=== PATIENT | female | born 1960 | race Caucasian/White ===

== ENCOUNTER 2018-06-06 15:31 | Outpatient (REF) | payer MEDICARE, MEDICAID, SELFPAY ==
[2018-06-06 21:46] LABS: HCT 37.2 % (36.0-46.0); HGB 11.5 g/dL (12.0-15.5); Mean Corp. HGB Concentration 30.9 g/dL (32.0-36.0); Mean Corpuscular Hemoglobin 27.7 pg (27.0-33.0); Mean Corpuscular Volume 89.6 fL (80-95); Mean Platelet Volume 11.8 fL (8.0-11.0); Platelet Count 233 x1000/uL (130-400); RBC 4.15 m/cumm (4.00-5.20); RBC Distribution Width 16.1 % (11.7-14.6)
[2018-06-06 22:07] LABS: ALT 22 U/L (12-78); AST 23 U/L (15-37); Albumin 4.2 g/dL (3.4-5.0); Alkaline Phosphatase 120 U/L (46-116); Anion Gap 8.7 mmol/L (3-11); BUN 28 mg/dL (7-18); Bilirubin, Total 0.3 mg/dL (0.2-1.0); CO2 26.3 mmol/L (21.0-32.0); CREATININE 1.53 mg/dL (0.55-1.02); Calcium 8.9 mg/dL (8.5-10.1); Chloride 107 mmol/L (98-107); Cholesterol 144 mg/dL (50-200); Estimated GFR 35.11 (mL/min/1.73m2); Glucose 96 mg/dL (70-100); HDL Cholesterol 41 mg/dL (40-60); LDL CHOLESTEROL 72 mg/dL (<100); Potassium 4.3 mmol/L (3.5-5.1); Sodium 142 mmol/L (136-145); Triglyceride 265 mg/dL (30-150)
== END 2018-06-06 15:32 ==
LOC: NCHCN 15:31
PROVIDERS: PCP Nurse Practitioner Family; Visit Provider Family Medicine
DX: E11.9 Type 2 diabetes mellitus without complications (principal); R41.3 Other amnesia
CPT/HCPCS: 80053; 80061; 83721; 85027

== ENCOUNTER 2018-09-18 20:51 | Outpatient (REF) | payer MEDICARE, MEDICAID, SELFPAY ==
[2018-09-18 21:34] LABS: Anion Gap 11.5 mmol/L (3-11); BUN 28 mg/dL (7-18); CO2 24.5 mmol/L (21.0-32.0); CREATININE 1.49 mg/dL (0.55-1.02); Chloride 107 mmol/L (98-107); Glucose 156 mg/dL (70-100); Potassium 4.1 mmol/L (3.5-5.1); Sodium 143 mmol/L (136-145)
== END 2018-09-18 21:11 ==
LOC: NCHCN 20:51
PROVIDERS: PCP Nurse Practitioner Family; Visit Provider Family Medicine
DX: E11.9 Type 2 diabetes mellitus without complications (principal)
CPT/HCPCS: 80048

== ENCOUNTER 2018-10-18 14:06 | Outpatient (REF) | payer MEDICARE, MEDICAID, SELFPAY ==
[2018-10-18 21:12] LABS: Anion Gap 11.8 mmol/L (3-11); BUN 28 mg/dL (7-18); CO2 22.2 mmol/L (21.0-32.0); CREATININE 1.53 mg/dL (0.55-1.02); Chloride 108 mmol/L (98-107); Estimated GFR 35.11 (mL/min/1.73m2); Glucose 134 mg/dL (70-100); Potassium 5.2 mmol/L (3.5-5.1); Sodium 142 mmol/L (136-145)
== END 2018-10-18 14:26 ==
LOC: NCHCN 14:06
PROVIDERS: PCP Nurse Practitioner Family; Visit Provider Family Medicine
DX: N18.3 Chronic kidney disease, stage 3 (moderate) (principal)
CPT/HCPCS: 80048

== ENCOUNTER 2019-04-17 15:56 | Outpatient (REF) | payer MEDICARE, MEDICAID, SELFPAY ==
[2019-04-17 22:01] LABS: HCT 36.8 % (36.0-46.0); HGB 11.3 g/dL (12.0-15.5); Mean Corp. HGB Concentration 30.7 g/dL (32.0-36.0); Mean Corpuscular Volume 87.8 fL (80-95); Mean Platelet Volume 11.7 fL (8.0-11.0); Platelet Count 270 x1000/uL (130-400); RBC 4.19 m/cumm (4.00-5.20); RBC Distribution Width 16.4 % (11.7-14.6); White Blood Cell Count 10.26 k/cumm (4.4-10.8)
[2019-04-17 22:47] LABS: ALT 36 U/L (12-78); AST 54 U/L (15-37); Alkaline Phosphatase 116 U/L (46-116); Anion Gap 13.2 mmol/L (3-11); BUN 42 mg/dL (7-18); Bilirubin, Total 0.3 mg/dL (0.2-1.0); CO2 22.8 mmol/L (21.0-32.0); CREATININE 1.97 mg/dL (0.55-1.02); Calcium 8.6 mg/dL (8.5-10.1); Calculated LDL 102 mg/dL; Chloride 107 mmol/L (98-107); Cholesterol 194 mg/dL (50-200); Estimated GFR 26.23 (mL/min/1.73m2); Glucose 63 mg/dL (70-100); HDL Cholesterol 38 mg/dL (40-60); Potassium 4.2 mmol/L (3.5-5.1); Sodium 143 mmol/L (136-145); TSH 2.32 uIU/mL (0.358-3.74); Total Protein 7.7 g/dL (6.4-8.2); Triglyceride 270 mg/dL (30-150)
== END 2019-04-17 16:16 ==
LOC: NCHCN 15:56
PROVIDERS: PCP Nurse Practitioner Family; Visit Provider Family Medicine
DX: E11.9 Type 2 diabetes mellitus without complications (principal); I10 Essential (primary) hypertension; E78.2 Mixed hyperlipidemia; D64.9 Anemia, unspecified; R06.09 Other forms of dyspnea
CPT/HCPCS: 80053; 80061; 83721; 85027; 84443

== ENCOUNTER 2019-04-30 10:16 | Outpatient (REF) | payer MEDICARE, MEDICAID, SELFPAY ==
[2019-04-30 21:41] LABS: Anion Gap 13.1 mmol/L (3-11); BUN 26 mg/dL (7-18); CO2 21.9 mmol/L (21.0-32.0); CREATININE 1.51 mg/dL (0.55-1.02); Calcium 8.7 mg/dL (8.5-10.1); Chloride 105 mmol/L (98-107); Estimated GFR 35.52 (mL/min/1.73m2); Glucose 238 mg/dL (70-100); Potassium 4.5 mmol/L (3.5-5.1); Sodium 140 mmol/L (136-145)
== END 2019-04-30 10:36 ==
LOC: NCHCN 10:16
PROVIDERS: PCP Nurse Practitioner Family; Visit Provider Family Medicine
DX: N18.3 Chronic kidney disease, stage 3 (moderate) (principal)
CPT/HCPCS: 80048

== ENCOUNTER 2019-08-20 11:23 | Outpatient (REF) | payer MEDICARE, MEDICAID, SELFPAY ==
[2019-08-20 22:04] LABS: Abs Immature Grans 0.02 k/cumm (0.0-0.09); Absolute Basophil Count 0.03 k/cumm (0.0-0.2); Absolute Eosinophil Count 0.22 k/cumm (0.0-0.7); Absolute Lymphocyte Count 1.75 k/cumm (1.2-3.4); Absolute Neutrophil Count 5.42 k/cumm (1.2-6.7); Basophils % 0.4; Eosinophils % 2.7; HCT 37.2 % (36.0-46.0); HGB 11.2 g/dL (12.0-15.5); Immature Grans % 0.2; Lymphocytes % 21.5; Mean Corp. HGB Concentration 30.1 g/dL (32.0-36.0); Mean Corpuscular Hemoglobin 27.5 pg (27.0-33.0); Mean Corpuscular Volume 91.2 fL (80-95); Mean Platelet Volume 11.4 fL (8.0-11.0); Monocytes % 8.6; Neutrophils % 66.6; Platelet Count 233 x1000/uL (130-400); RBC 4.08 m/cumm (4.00-5.20); RBC Distribution Width 15.5 % (11.7-14.6); White Blood Cell Count 8.14 k/cumm (4.4-10.8)
[2019-08-20 22:28] LABS: Anion Gap 11.2 mmol/L (3-11); BUN 20 mg/dL (7-18); CO2 26.8 mmol/L (21.0-32.0); CREATININE 1.36 mg/dL (0.55-1.02); Chloride 106 mmol/L (98-107); Estimated GFR 40.08 (mL/min/1.73m2); Glucose 170 mg/dL (70-100); Potassium 4.7 mmol/L (3.5-5.1); Sodium 144 mmol/L (136-145); TSH 2.05 uIU/mL (0.36-3.74)
[2019-08-20 22:36] LABS: Hemoglobin A1C 7.9 % (4.5-6.2)
[2019-08-20 22:43] LABS: COMMENT (LAB VIEW ONLY) 108.57 mg/dL; Microalb ug/mg Crea 14.6 ug/mg Cr
== END 2019-08-20 11:43 ==
LOC: NCHCN 11:23
PROVIDERS: PCP Nurse Practitioner Family; Visit Provider Family Medicine
DX: E11.65 Type 2 diabetes mellitus with hyperglycemia (principal); E03.9 Hypothyroidism, unspecified; I10 Essential (primary) hypertension; D64.9 Anemia, unspecified
CPT/HCPCS: 80048; 82043; 82570; 83036; 84443; 85025

== ENCOUNTER 2019-09-19 22:00 | Outpatient (REF) | payer MEDICARE, MEDICAID, SELFPAY ==
[2019-09-19 22:15] LABS: ALT 31 U/L (14-59); AST 30 U/L (15-37); Alkaline Phosphatase 107 U/L (46-116); Anion Gap 13.1 mmol/L (3-11); BUN 21 mg/dL (7-18); Bilirubin, Total 0.3 mg/dL (0.2-1.0); CO2 22.9 mmol/L (21.0-32.0); CREATININE 1.37 mg/dL (0.55-1.02); Calcium 8.8 mg/dL (8.5-10.1); Chloride 108 mmol/L (98-107); Estimated GFR 39.74 (mL/min/1.73m2); Glucose 129 mg/dL (74-106); Potassium 4.4 mmol/L (3.5-5.1); Sodium 144 mmol/L (136-145); TSH (W/Ref FT4) 4.79 uIU/mL (0.36-3.74); Total Protein 7.5 g/dL (6.4-8.2)
[2019-09-19 22:47] LABS: FREE T4 0.74 ng/dL (0.76-1.46)
== END 2019-09-19 22:20 ==
LOC: NCHCN 22:00
PROVIDERS: PCP Nurse Practitioner Family; Visit Provider Nurse Practitioner Community Health
DX: R60.0 Localized edema (principal)
CPT/HCPCS: 80053; 81003; 84439; 84443

== ENCOUNTER 2020-06-12 09:30 | Outpatient (REF) | payer MEDICARE, MEDICAID, SELFPAY ==
[2020-06-12 21:14] LABS: Anion Gap 3.8 mmol/L (3-11); BUN 20 mg/dL (7-18); CO2 27.2 mmol/L (21.0-32.0); CREATININE 1.37 mg/dL (0.55-1.02); Calcium 8.7 mg/dL (8.5-10.1); Calculated LDL 70 mg/dL (<100); Chloride 108 mmol/L (98-107); Cholesterol 161 mg/dL (<200); Glucose 253 mg/dL (74-106); HDL Cholesterol 35 mg/dL (40-60); Potassium 4.1 mmol/L (3.5-5.1); Sodium 139 mmol/L (136-145); TSH 1.29 uIU/mL (0.36-3.74); Triglyceride 280 mg/dL (<150)
== END 2020-06-12 09:50 ==
LOC: NCHCN 09:30
PROVIDERS: PCP Nurse Practitioner Family; Visit Provider Family Medicine
DX: E03.9 Hypothyroidism, unspecified (principal); I10 Essential (primary) hypertension; E11.65 Type 2 diabetes mellitus with hyperglycemia; E78.2 Mixed hyperlipidemia; N18.3 Chronic kidney disease, stage 3 (moderate)
CPT/HCPCS: 80048; 80061; 84443

== ENCOUNTER 2020-09-01 15:03 | Outpatient (REF) | payer MEDICARE, MEDICAID, SELFPAY ==
[2020-09-01 21:53] LABS: COMMENT (LAB VIEW ONLY) 93.68 mg/dL
== END 2020-09-01 15:23 ==
LOC: NCHCN 15:03
PROVIDERS: PCP Family Medicine; Visit Provider Family Medicine
DX: E11.65 Type 2 diabetes mellitus with hyperglycemia (principal)
CPT/HCPCS: 82043; 82570

== ENCOUNTER 2021-02-19 16:28 | Outpatient (REF) | payer OTHER, MEDICAID, SELFPAY ==
[2021-02-19 20:52] LABS: ALT 25 U/L (14-59); AST 26 U/L (15-37); Alkaline Phosphatase 106 U/L (46-116); Anion Gap 7.9 mmol/L (3-11); BUN 27 mg/dL (7-18); Bilirubin, Total 0.4 mg/dL (0.2-1.0); CO2 27.1 mmol/L (21.0-32.0); CREATININE 1.4 mg/dL (0.55-1.02); Calcium 9.2 mg/dL (8.5-10.1); Chloride 109 mmol/L (98-107); Estimated GFR 38.62 (mL/min/1.73m2); Glucose 72 mg/dL (74-106); Potassium 4.4 mmol/L (3.5-5.1); Sodium 144 mmol/L (136-145); Total Protein 7.4 g/dL (6.4-8.2)
== END 2021-02-19 16:29 | disposition home or self-care (01) ==
LOC: NCHCN 16:28
PROVIDERS: PCP Family Medicine; Visit Provider Family Medicine
DX: E11.65 Type 2 diabetes mellitus with hyperglycemia (principal); I12.9 Hypertensive chronic kidney disease with stage 1 through stage 4 chronic kidney disease, or unspecified chronic kidney disease; E66.01 Morbid (severe) obesity due to excess calories; N18.30 Chronic kidney disease, stage 3 unspecified
CPT/HCPCS: 80053

== ENCOUNTER 2021-08-25 18:10 | Outpatient (REF) | payer MEDICARE, MEDICAID, SELFPAY ==
[2021-08-25 21:36] LABS: Absolute Basophil Count 0.05 10^3/uL (0.0-0.2); Absolute Eosinophil Count 0.28 10^3/uL (0.0-0.7); Absolute Lymphocyte Count 1.49 10^3/uL (1.2-3.4); Absolute Monocyte Count 0.62 10^3/uL (0.1-0.8); Absolute Neutrophil Count 4.94 10^3/uL (1.2-6.7); Basophils % 0.7; Eosinophils % 3.7; HCT 37.2 % (36.0-46.0); HGB 11.3 g/dL (11.2-15.7); Immature Grans % 1.3; Lymphocytes % 19.9; MCH 28.8 pg (27.0-33.0); MCHC 30.4 % (32.0-36.0); MCV 94.9 fL (80-95); MPV 10.8 fL (8.0-11.0); Monocytes % 8.3; Neutrophils % 66.1; Nucleated RBC 0 %; Platelet Count 252 10^3/uL (130-400); RBC 3.92 10^6/uL (3.93-5.22); RDW 14.2 % (11.7-14.6); RDW-SD 49.6 fL; WBC 7.48 10^3/uL (4.4-10.8)
[2021-08-26 08:07] LABS: Albumin 3.6 g/dL (3.4-5.0); Alkaline Phosphatase 124 U/L (46-116); BUN 27 mg/dL (7-18); Bilirubin, Total 0.3 mg/dL (0.2-1.0); CREATININE 1.4 mg/dL (0.55-1.02); Calcium 8.5 mg/dL (8.5-10.1); Estimated GFR 38.49 (mL/min/1.73m2); Glucose 237 mg/dL (74-106); Sodium 144 mmol/L (136-145)
[2021-08-26 08:08] LABS: ALT 22 U/L (14-59); AST 15 U/L (15-37); Anion Gap 10.3 mmol/L (3-11); CO2 27.7 mmol/L (21.0-32.0); Chloride 106 mmol/L (98-107); Magnesium 1.8 mg/dL (1.8-2.4); Potassium 4.1 mmol/L (3.5-5.1)
== END 2021-08-25 18:11 | disposition home or self-care (01) ==
LOC: NCHCN 18:10
PROVIDERS: PCP Family Medicine; Visit Provider Registered Nurse
DX: R10.9 Unspecified abdominal pain (principal); R60.0 Localized edema; R06.02 Shortness of breath
CPT/HCPCS: 80053; 83735; 84443; 85025

== ENCOUNTER 2021-08-25 18:28 | Outpatient (REF) | payer MEDICARE, MEDICAID, SELFPAY ==
--- OUTSIDE RECORDS SUMMARY | 2021-08-25 18:31 | XMS_ITS | CCD ---
:1960 Author Care Team Providers Name Role Phone NASIMA MUSTAFA Attending Physician Unavailable Vital Signs Unknown or Not Available. Allergies Allergy Code Allergy Type Reaction Status SHRIMP 0 Food allergy Anaphylaxis Active OYSTER 0 Food allergy Anaphylaxis Active CEPHALOSPORIN 0 Drug allergy RASH Active KEFLEX 329508 Drug allergy RASH Active BACTRIM 629949 Drug allergy RASH-OINTMENT Active Procedures Unknown or Not Available. History of Immunizations Unknown or Not Available. Problems Unknown or Not Available. Results Unknown or Not Available. Active Medications Unknown or Not Available. Medications Administered During Visit Unknown or Not Available. Encounters Unknown or Not Available. Social History Smoking Status Code Start Date End Date Never smoker [id number] Patient Decision Aids Unknown or Not Available. Discharge Instructions You were admitted to [facility] on 05/18/2021 07:50 You were discharged from [facility] on 05/18/2021 07:50 Should you have any questions prior to d ischarge, please contact a member of your healthcare team. If you have left the spital and have any questions, please contact your primary care physician. Chief Complaint and Reason For Visit Unknown or Not Available. Function Status Unknown or Not Available. Plan of Care Unknown or Not Available. Referral/Transition of Care Unknown or Not Available.
--- OUTSIDE RECORDS SUMMARY | 2021-08-25 18:31 | XMS_ITS | CCD ---
:1960 Author Care Team Providers Name Role Phone MD YOLANDA Attending Physician Unavailable Vital Signs Unknown or Not Available. Allergies Allergy Code Allergy Type Reaction Status CEPHALOSPORIN 0 Drug allergy RASH Active KEFLEX 679806 Drug allergy RASH Active Procedures Unknown or Not Available. History of Immunizations Unknown or Not Available. Problems Unknown or Not Available. Results Unknown or Not Available. Active Medications Unknown or Not Available. Medications Administered During Visit Unknown or Not Available. Encounters Encounter Diagnosis Diagnosis Code Start Date Procedure and treatment not carried out because Z5329 04/02/2021 of patient's decision for other reasons Social History Smoking Status Code Start Date End Date Never smoker [id number] Patient Decision Aids Unknown or Not Available. Discharge Instructions You were admitted to [facility] on 04/02/2021 08:12 with a principal diagnosis of Procedure and treatment not carried out because of patient's decision for other reasons You were discharged from on 04/02/2021 08:12 Should you have any questions prior to d ischarge, please contact a member of your healthcare team. If you have left the ho spital and have any questions, please contact your primary care physician. Chief Complaint and Reason For Visit Unknown or Not Available. Function Status Unknown or Not Available. Plan of Care Unknown or Not Available. Referral/Transition of Care Unknown or Not Available.
--- OUTSIDE RECORDS SUMMARY | 2021-08-25 18:31 | XMS_ITS | CCD ---
:1960 Author Care Team Providers Name Role Phone MD PENNY Attending Physician Unavailable Vital Signs Unknown or Not Available. Allergies Allergy Code Allergy Type Reaction Status CEPHALOSPORIN 0 Drug allergy RASH Active KEFLEX 462971 Drug allergy RASH Active Procedures Unknown or Not Available. History of Immunizations Unknown or Not Available. Problems Unknown or Not Available. Results Unknown or Not Available. Active Medications Unknown or Not Available. Medications Administered During Visit Unknown or Not Available. Encounters Encounter Diagnosis Diagnosis Code Start Date Abdominal distension (gaseous) R140 Social History Smoking Status Code Start Date End Date Never smoker [id number] Patient Decision Aids Unknown or Not Available. Discharge Instructions You were admitted to [facility] on 03/29/2021 16:40 with a principal diagnosis of Abdominal distension (gaseo us) You were discharged from [facility] on 03/29/2021 16:40 Should you have any questions prior to [...]
[2021-08-27 16:03] LABS: COVID-19 RT-PCR UVMMC Result Negative (Negative)
== END 2021-08-25 18:29 | disposition home or self-care (01) ==
LOC: NCHCN 18:28
PROVIDERS: PCP Family Medicine; Visit Provider Registered Nurse
DX: Z20.822 Contact with and (suspected) exposure to COVID-19 (principal); R06.02 Shortness of breath
CPT/HCPCS: U0003; U0005

== ENCOUNTER 2021-11-30 16:18 | Outpatient (REF) | payer MEDICARE, MEDICAID, SELFPAY ==
[2021-11-30 18:08] LABS: COMMENT (LAB VIEW ONLY) 77.48 mg/dL
[2021-11-30 18:21] LABS: Microalb ug/mg Crea 751.4 ug/mg Cr
== END 2021-11-30 16:19 | disposition home or self-care (01) ==
LOC: NCHCN 16:18
PROVIDERS: PCP Family Medicine; Visit Provider Family Medicine
DX: E11.65 Type 2 diabetes mellitus with hyperglycemia (principal)
CPT/HCPCS: 82043; 82570

== ENCOUNTER 2023-01-13 14:04 | Outpatient (REF) | payer MEDICARE, MEDICAID, SELFPAY ==
[2023-01-13 15:50] LABS: Hemoglobin A1C 6.7 % (<5.7)
[2023-01-13 15:51] LABS: ALT 30 U/L (14-59); AST 25 U/L (15-37); Albumin 3.9 g/dL (3.4-5.0); Alkaline Phosphatase 91 U/L (46-116); Anion Gap 9.5 mmol/L (3-11); BUN 24 mg/dL (7-18); Bilirubin, Total 0.3 mg/dL (0.2-1.0); CO2 29.5 mmol/L (21.0-32.0); CREATININE 1.4 mg/dL (0.55-1.02); Calculated LDL 48 mg/dL (<100); Chloride 104 mmol/L (98-107); Cholesterol 148 mg/dL (<200); Estimated GFR 43.07 (mL/min/1.73m2); Glucose 119 mg/dL (74-106); HDL Cholesterol 45 mg/dL (40-60); Potassium 4.7 mmol/L (3.5-5.1); Sodium 143 mmol/L (136-145); TSH 2.05 uIU/mL (0.36-3.74); Total Protein 7.7 g/dL (6.4-8.2); Triglyceride 275 mg/dL (<150)
[2023-01-13 16:14] LABS: COMMENT (LAB VIEW ONLY) 76.27 mg/dL
[2023-01-13 16:16] LABS: Microalb ug/mg Crea 186.7 ug/mg Cr
== END 2023-01-13 14:05 | disposition home or self-care (01) ==
LOC: NCHCN 14:04
PROVIDERS: PCP Family Medicine; Visit Provider Family Medicine
DX: E11.65 Type 2 diabetes mellitus with hyperglycemia (principal); I10 Essential (primary) hypertension; E03.9 Hypothyroidism, unspecified; E78.2 Mixed hyperlipidemia
CPT/HCPCS: 80053; 80061; 82043; 82570; 83036; 84443

== ENCOUNTER 2023-08-17 16:07 | Outpatient (REF) | payer MEDICARE, MEDICAID, SELFPAY ==
[2023-08-17 15:02] LABS: BUN 34 mg/dL (7-18); CREATININE 1.6 mg/dL (0.55-1.02); Calcium 9.2 mg/dL (8.5-10.1); Chloride 108 mmol/L (98-107); Estimated GFR 36.47 (mL/min/1.73m2); Glucose 107 mg/dL (74-106); Potassium 4.5 mmol/L (3.5-5.1); Sodium 142 mmol/L (136-145)
== END 2023-08-17 16:08 | disposition home or self-care (01) ==
LOC: NCHCN 16:07
PROVIDERS: PCP Family Medicine; Visit Provider Family Medicine
DX: E11.9 Type 2 diabetes mellitus without complications (principal); I10 Essential (primary) hypertension; N18.30 Chronic kidney disease, stage 3 unspecified; M25.561 Pain in right knee; M25.562 Pain in left knee
CPT/HCPCS: 80048

== ENCOUNTER 2023-09-29 15:38 | Outpatient (REF) | payer MEDICARE, MEDICAID, SELFPAY ==
[2023-09-29 14:34] LABS: Anion Gap 5.8 mmol/L (3-11); BUN 25 mg/dL (7-18); CO2 28.2 mmol/L (21.0-32.0); CREATININE 1.5 mg/dL (0.55-1.02); Calcium 9.3 mg/dL (8.5-10.1); Chloride 106 mmol/L (98-107); Glucose 145 mg/dL (74-106); Potassium 4.4 mmol/L (3.5-5.1); Sodium 140 mmol/L (136-145)
--- OUTSIDE RECORDS SUMMARY | 2023-09-29 15:40 | XMS_ITS | CCD ---
Author Name Unknown Address [address] [place] [address] [id number] Organization Unknown Address [address] [place] [address] [id number] Care Team Providers Care Rotary Peel Oven Tender Name Role Phone PENNY, MCKAQUINCY Saini Attending Physician [phone] Vital Signs Unknown or Not Available. Allergies Allergy Code Allergy Type Reaction Status SHRIMP 0 Food allergy Anaphylaxis Active OYSTER 0 Food allergy Anaphylaxis Active CEPHALOSPORIN 0 Drug allergy RASH Active KEFLEX 074258 Drug allergy RASH Active BACTRIM 832015 Drug allergy RASH-OINTMENT Active DICLOFENAC POTASSIUM 81540 Drug allergy RASH Ac tive Procedures Unknown or Not Available. History of Immunizations Unknown or Not Available. Problems Problem Code Start Date Resolved Date Status Type 2 diabetes 81998555 Active HTN 38947123 Active Hypothyroidism 69404817 Active HLD 73564792 Active Diabetic neuropathy 536757038 Activ e GERD 429627216 Active Depression 49702604 Active Results Unknown or Not Available. Active Medications Medication Code Dose Units Frequency Route Modificatio n Start Date/Time predniSONE 20MG Oral Tablet 353970 1 TABLET DAILY ORAL 01/26/20 22 10:58 Prescription Detail TAKE 1 TABLET ORAL DAILY Medications Administered During Visit Unknown or Not Available. Encounters Encounter Diagnosis Diagnosis Code Start Date Pain in right knee G51100 05/31/2023 Social History Smoking Status Code Start Date End Date Never smoker [id number] Patient Decision Aids Unknown or Not Available. Discharge Instructions You were admitted to [facility] on 05/31/2023 08:20 with a principal diagnosis of Pain in right knee You were discharged from [facility] on 05/31/2023 14:32 Should you have any questions prior to discharge, please contact a member of your healthcare team. If you have left the hospital and have any questions, please contact your primary care physician. Chief Complaint and Reason For Visit Unknown or Not Available. Function Status Unknown or Not Available. Plan of Care Unknown or Not Available. Referral/Transition of Care Unknown or Not Available.
--- OUTSIDE RECORDS SUMMARY | 2023-09-29 15:40 | XMS_ITS | CCD ---
Author Name Unknown Address [address] [place] [address] [phone] Organization Unknown Address [address] [place] [address] [id number] Care Team Providers Care Process Engineering Intern Name Role Phone PENNY, MCKAQUINCY Saini Attending Physician [phone] Vital Signs Unknown or Not Available. Allergies Allergy Code Allergy Type Reaction Status SHRIMP 0 Food allergy Anaphylaxis Active OYSTER 0 Food allergy Anaphylaxis Active CEPHALOSPORIN 0 Drug allergy RASH Active KEFLEX 391795 Drug allergy RASH Active BACTRIM 142916 Drug allergy RASH-OINTMENT Active DICLOFENAC POTASSIUM 37916 Drug allergy RASH Ac tive Procedures Unknown or Not Available. History of Immunizations Unknown or Not Available. Problems Problem Code Start Date Resolved Date Status Type 2 diabetes 49447109 Active HTN 30158731 Active Hypothyroidism 49128430 Active HLD 63146057 Active Diabetic neuropathy 628450168 Activ e GERD 567013967 Active Depression 04406071 Active Results Unknown or Not Available. Active Medications Medication Code Dose Units Frequency Route Modificatio n Start Date/Time predniSONE 20MG Oral Tablet 899481 1 TABLET DAILY ORAL 01/26/20 22 10:58 Prescription Detail TAKE 1 TABLET ORAL DAILY Medications Administered During Visit Unknown or Not Available. Encounters Encounter Diagnosis Diagnosis Code Start Date Other specified soft tissue disorders M7989 07/08/2022 Social History Smoking Status Code Start Date End Date Never smoker 101525016 Patient Decision Aids Unknown or Not Available. Discharge Instructions You were admitted to [facility] on 07/08/2022 08:31 with a principal diagnosis of Other specified soft tissue disorders You were discharged from [facility] on 07/08/2022 08:31 Should you have any questions prior to discharge, please contact a member of your healthcare team. If you have left the hospital and have any questions, please contact your primary care physician. Chief Complaint and Reason For Visit Chief Complaint Date of Onset pain/masses Function Status Unknown or Not Available. Plan of Care Unknown or Not Available. Referral/Transition of Care Unknown or Not Available.
--- OUTSIDE RECORDS SUMMARY | 2023-09-29 15:40 | XMS_ITS | CCD ---
Author Name Unknown Address [address] [place] [address] [phone] Organization Unknown Address [address] [place] [address] [phone] Care Team Providers Care Axminster Rug Setter Name Role Phone BALJIT CALI Attending Physician [phone] BALJIT CALI Rounding (Secondary) Physician [phone] Vital Signs Unknown or Not Available. Allergies Allergy Code Allergy Type Reaction Status SHRIMP 0 Food allergy Anaphylaxis Active OYSTER 0 Food allergy Anaphylaxis Active CEPHALOSPORIN 0 Drug allergy RASH Active KEFLEX 899986 Drug allergy RASH Active BACTRIM 240164 Drug allergy RASH-OINTMENT Active DICLOFENAC POTASSIUM 70038 Drug allergy RASH Ac tive Procedures Unknown or Not Available. History of Immunizations Unknown or Not Available. Problems Problem Code Start Date Resolved Date Status Type 2 diabetes 43265642 Active HTN 73043147 Active Hypothyroidism 18415801 Active HLD 49946207 Active Diabetic neuropathy 875351721 Activ e GERD 372964847 Active Depression 00129363 Active Results PAP THINPREP HPV REGARDLESS OF DX* - Collect Date/Time: 05/10/2023 20:26 Test Name Code Test Result Test Units Test Ref Rang e Report (See below) N/A Active Medications Medication Code Dose Units Frequency Route Modificatio n Start Date/Time predniSONE 20MG Oral Tablet 362324 1 TABLET DAILY ORAL 01/26/20 22 10:58 Prescription Detail TAKE 1 TABLET ORAL DAILY Medications Administered During Visit Unknown or Not Available. Encounters Encounter Diagnosis Diagnosis Code Start Date Encounter for gynecological examination (general) (routine) without abnormal findings [id number] 05/10/2023 Social History Smoking Status Code Start Date End Date Never smoker 112401537 Patient Decision Aids Unknown or Not Available. Discharge Instructions You were admitted to [facility] on 05/10/2023 07:51 with a principal diagnosis of Encounter for gynecological examination (general) (routine) without abnormal findings You had the following tests done:PAP THINPREP HPV REGARDLESS OF DX* You were discharged from [facility] on 05/10/2023 07:52 Should you have any questions prior to [...]
--- OUTSIDE RECORDS SUMMARY | 2023-09-29 15:40 | XMS_ITS | CCD ---
Author Name Unknown Address [address] [place] [address] [id number] Organization Unknown Address [address] [place] [address] [id number] Care Team Providers Care Videotape Operator Name Role Phone PENNY, MCKAQUINCY Parveen Attending Physician [phone] Vital Signs Unknown or Not Available. Allergies Allergy Code Allergy Type Reaction Status SHRIMP 0 Food allergy Anaphylaxis Active OYSTER 0 Food allergy Anaphylaxis Active CEPHALOSPORIN 0 Drug allergy RASH Active KEFLEX 820787 Drug allergy RASH Active BACTRIM 957447 Drug allergy RASH-OINTMENT Active Procedures Unknown or Not Available. History of Immunizations Unknown or Not Available. Problems Problem Code Start Date Resolved Date Status Type 2 diabetes 11292650 Active HTN 87393203 Active Hypothyroidism 19601868 Active HLD 26092157 Active Diabetic neuropathy 538390658 Activ e GERD 028756693 Active Depression 88821127 Active Results Unknown or Not Available. Active Medications Medication Code Dose Units Frequency Route Modificatio n Start Date/Time predniSONE 20MG Oral Tablet 203880 1 TABLET DAILY ORAL 01/26/20 22 10:58 Prescription Detail TAKE 1 TABLET ORAL DAILY Medications Administered During Visit Unknown or Not Available. Encounters Encounter Diagnosis Diagnosis Code Start Date Pain in left knee Y32303 01/18/2022 Social History Smoking Status Code Start Date End Date Never smoker 480330110 Patient Decision Aids Unknown or Not Available. Discharge Instructions You were admitted to [facility] on 01/18/2022 11:52 with a principal diagnosis of Pain in left knee You were discharged from [facility] on 01/18/2022 11:52 Should you have any questions prior to [...]
--- OUTSIDE RECORDS SUMMARY | 2023-09-29 15:40 | XMS_ITS | CCD ---
Author Name Unknown Address [address] [place] [address] [id number] Organization Unknown Address [address] [place] [address] [id number] Care Team Providers Care Manager Document Control Name Role Phone EDGARDO FRANCISQUINCY Parveen Attending Physician [phone] Vital Signs Unknown or Not Available. Allergies Allergy Code Allergy Type Reaction Status SHRIMP 0 Food allergy Anaphylaxis Active OYSTER 0 Food allergy Anaphylaxis Active CEPHALOSPORIN 0 Drug allergy RASH Active KEFLEX 820763 Drug allergy RASH Active BACTRIM 863165 Drug allergy RASH-OINTMENT Active Procedures Unknown or Not Available. History of Immunizations Unknown or Not Available. Problems Problem Code Start Date Resolved Date Status Type 2 diabetes 99156691 Active HTN 57942544 Active Hypothyroidism 53522337 Active HLD 05533637 Active Diabetic neuropathy 232825966 Activ e GERD 805137282 Active Depression 49536812 Active Results D-DIMER - Collect Date/Time: 12/24/2021 13:43 Test Name Code Test Result Test Units Test Ref Rang e D-DIMER 22596-0 0.38 mg/L L=0.19 H=0.50 Active Medications Medication Code Dose Units Frequency Route Modificatio n Start Date/Time predniSONE 20MG Oral Tablet 402451 1 TABLET DAILY ORAL 01/26/20 22 10:58 Prescription Detail TAKE 1 TABLET ORAL DAILY Medications Administered During Visit Unknown or Not Available. Encounters Encounter Diagnosis Diagnosis Code Start Date Localized swelling, mass and lump, unspecified l ower limb R2240 12/24/2021 Social History Smoking Status Code Start Date End Date Never smoker 873053565 Patient Decision Aids Unknown or Not Available. Discharge Instructions You were admitted to [facility] on 12/24/2021 13:30 with a principal diagnosis of Localized swelling, mass and lump, unspecified lower limb You had the following tests done:D-DIMER You were discharged from [facility] on 12/24/2021 13:30 Should you have any questions prior to [...]
--- OUTSIDE RECORDS SUMMARY | 2023-09-29 15:40 | XMS_ITS | CCD ---
Author Name Unknown Address [address] [place] [address] [phone] Organization Unknown Address [address] [place] [address] [phone] Care Team Providers Care Mirror Silverer Name Role Phone RAUL VICK Attending Physician [phone] RAUL VICK Er Physician 0 [phone] Unavailable Registered Nurse [phone] Vital Signs Vital Sign Value Unit Date/Time Recent/Initial ? BMI (Body Mass Index) 54.68 kg/m^2 01/25/2022 10: 16 Initial VS Weight Measured 280 lbs 01/25/2022 10:16 Ini tial VS Height 60 in 01/25/2022 10:16 Initial VS BSA (Body Surface Area) 2.32 m^2 01/25/2022 1 0:16 Initial VS BP Systolic 140 mmHg 01/25/2022 10:16 Initial VS BP Diastolic 60 mmHg 01/25/2022 10:16 Initia l VS Respiratory Rate 15 bpm 01/25/2022 10:16 In itial VS Heart Rate 90 bpm 01/25/2022 10:16 Initial VS O2 % BldC Oximetry 100 % 01/25/2022 10:16 Initial VS Body Temperature 36.7 degrees 01/25/2022 10:16 In itial VS BP Systolic 148 mmHg 01/25/2022 11:17 Most Re cent VS BP Diastolic 48 mmHg 01/25/2022 11:17 Most R ecent VS Respiratory Rate 18 bpm 01/25/2022 11:[address] Recent VS Heart Rate 79 bpm 01/25/2022 11:17 Most Rec ent VS O2 % BldC Oximetry 97 % 01/25/2022 11:17 Most Recent VS Body Temperature 36.9 degrees 01/25/2022 11:[address] Recent VS Allergies Allergy Code Allergy Type Reaction Status SHRIMP 0 Food allergy Anaphylaxis Active OYSTER 0 Food allergy Anaphylaxis Active CEPHALOSPORIN 0 Drug allergy RASH Active KEFLEX 397504 Drug allergy RASH Active BACTRIM 638258 Drug allergy RASH-OINTMENT Active DICLOFENAC POTASSIUM 07685 Drug allergy RASH Ac tive Procedures Unknown or Not Available. History of Immunizations Unknown or Not Available. Problems Problem Code Start Date Resolved Date Status Type 2 diabetes 05465508 Active HTN 32919652 Active Hypothyroidism 25404651 Active HLD 55238962 Active Diabetic neuropathy 560973008 Activ e GERD 972046477 Active Depression 41730523 Active Results Unknown or Not Available. Active Medications Unknown or Not Available. Medications Administered During Visit Unknown or Not Available. Encounters Encounter Diagnosis Diagnosis Code Start Date Contusion of left knee, initial encounter [id number] A 01/25/2022 Social History Smoking Status Code Start Date End Date Never smoker 773973393 Patient Decision Aids Unknown or Not Available. Discharge Instructions You were admitted to [facility] on 01/25/2022 09:44 with a principal diagnosis of Contusion of left knee, initial encounter You were discharged from [facility] on 01/25/2022 11:33 Should you have any questions prior to discharge, please contact a member of your healthcare team. If you have left the hospital and have any questions, please contact your primary care physician. Chief Complaint and Reason For Visit Chief Complaint Date of Onset LEFT KNEE PAIN 01/25/2022 Function Status Unknown or Not Available. Plan of Care Unknown or Not Available. Referral/Transition of Care Unknown or Not Available.
--- OUTSIDE RECORDS SUMMARY | 2023-09-29 15:41 | XMS_ITS | CCD ---
Author Name Unknown Address [address] [place] [address] [id number] Organization Unknown Address [address] [place] [address] [phone] Care Team Providers Care Property Appraiser Name Role Phone MEENAKSHI FRANCIS MD Attending Physician [phone] Vital Signs Unknown or Not Available. Allergies Allergy Code Allergy Type Reaction Status CEPHALOSPORIN 0 Drug allergy RASH Active KEFLEX 292538 Drug allergy RASH Active Procedures Unknown or Not Available. History of Immunizations Unknown or Not Available. Problems Problem Code Start Date Resolved Date Status Type 2 diabetes 40411012 Active HTN 80945895 Active Hypothyroidism 76321896 Active HLD 59986000 Active Diabetic neuropathy 983125681 Activ e GERD 779179644 Active Depression 11232136 Active Results Unknown or Not Available. Active Medications Medication Code Dose Units Frequency Route Modificatio n Start Date/Time predniSONE 20MG Oral Tablet 080820 1 TABLET DAILY ORAL 01/26/20 22 10:58 Prescription Detail TAKE 1 TABLET ORAL DAILY Medications Administered During Visit Unknown or Not Available. Encounters Encounter Diagnosis Diagnosis Code Start Date Abdominal distension (gaseous) R140 0 03/29/2021 Social History Smoking Status Code Start Date End Date Never smoker 688007567 Patient Decision Aids Unknown or Not Available. Discharge Instructions You were admitted to [facility] on 03/29/2021 16:40 with a principal diagnosis of Abdominal distension (gaseous) You were discharged from [facility] 01 on 03/29/2021 16:40 Should you have any [...]
--- OUTSIDE RECORDS SUMMARY | 2023-09-29 15:41 | XMS_ITS | CCD ---
Author Name Unknown Address [address] [place] [address] [id number] Organization Unknown Address [address] [place] [address] [phone] Care Team Providers Care Project Technician Name Role Phone RAMSEYZOILA STEIN NASIMA Attending Physician [phone] Vital Signs Unknown or Not Available. Allergies Allergy Code Allergy Type Reaction Status SHRIMP 0 Food allergy Anaphylaxis Active OYSTER 0 Food allergy Anaphylaxis Active CEPHALOSPORIN 0 Drug allergy RASH Active KEFLEX 422076 Drug allergy RASH Active BACTRIM 319665 Drug allergy RASH-OINTMENT Active Procedures Unknown or Not Available. History of Immunizations Unknown or Not Available. Problems Problem Code Start Date Resolved Date Status Type 2 diabetes 76005236 Active HTN 81559434 Active Hypothyroidism 02995920 Active HLD 71767778 Active Diabetic neuropathy 607426459 Activ e GERD 310617822 Active Depression 90489411 Active Results Unknown or Not Available. Active Medications Medication Code Dose Units Frequency Route Modificatio n Start Date/Time predniSONE 20MG Oral Tablet 050425 1 TABLET DAILY ORAL 01/26/20 22 10:58 Prescription Detail TAKE 1 TABLET ORAL DAILY Medications Administered During Visit Unknown or Not Available. Encounters Encounter Diagnosis Diagnosis Code Start Date Neuropathy due to type 2 diabetes mellitus 18230 [id number] 05/18/2021 Social History Smoking Status Code Start Date End Date Never smoker 621758052 Patient Decision Aids Unknown or Not Available. Discharge Instructions You were admitted to [facility] on 05/18/2021 07:50 with a principal diagnosis of Type 2 diabetes mellitus with diabetic neuropathy, unspecified You were discharged from [facility] on 05/18/2021 07:50 Should you have [...]
--- OUTSIDE RECORDS SUMMARY | 2023-09-29 15:41 | XMS_ITS | CCD ---
Author Name Unknown Address [address] [place] [address] [phone] Organization Unknown Address [address] [place] [address] [phone] Care Team Providers Care Trial Mgr Name Role Phone GUALBERTO GUERRERO MD Attending Physician [phone] Vital Signs Unknown or Not Available. Allergies Allergy Code Allergy Type Reaction Status CEPHALOSPORIN 0 Drug allergy RASH Active KEFLEX 111540 Drug allergy RASH Active Procedures Unknown or Not Available. History of Immunizations Unknown or Not Available. Problems Problem Code Start Date Resolved Date Status Type 2 diabetes 03947245 Active HTN 91107387 Active Hypothyroidism 44471609 Active HLD 36730175 Active Diabetic neuropathy 067858032 Activ e GERD 540315834 Active Depression 27082798 Active Results Unknown or Not Available. Active Medications Medication Code Dose Units Frequency Route Modificatio n Start Date/Time predniSONE 20MG Oral Tablet 895759 1 TABLET DAILY ORAL 01/26/20 22 10:58 Prescription Detail TAKE 1 TABLET ORAL DAILY Medications Administered During Visit Unknown or Not Available. Encounters Encounter Diagnosis Diagnosis Code Start Date Procedure and treatment not carried out because of patient's decision for other reasons Z5329 04/02/2021 Social History Smoking Status Code Start Date End Date Never smoker 497176409 Patient Decision Aids Unknown or Not Available. Discharge Instructions You were admitted to [facility] on 04/02/2021 08:12 with a principal diagnosis of Procedure and treatment not carried out because of patient's decision for other reasons You were discharged from [facility] on 04/02/2021 08:12 Should you have any [...]
--- OUTSIDE RECORDS SUMMARY | 2023-09-29 15:41 | XMS_ITS | CCD ---
Author Name Unknown Address [address] [place] [address] [phone] Organization Unknown Address [address] [place] [address] [phone] Care Team Providers Care Media Monitor Name Role Phone DONAVAN SUH Attending Physician [phone] DONAVAN SUH Rounding (Secondary) Physician [phone] Vital Signs Unknown or Not Available. Allergies Allergy Code Allergy Type Reaction Status SHRIMP 0 Food allergy Anaphylaxis Active OYSTER 0 Food allergy Anaphylaxis Active CEPHALOSPORIN 0 Drug allergy RASH Active KEFLEX 981467 Drug allergy RASH Active BACTRIM 170696 Drug allergy RASH-OINTMENT Active Procedures Unknown or Not Available. History of Immunizations Unknown or Not Available. Problems Problem Code Start Date Resolved Date Status Type 2 diabetes 27667944 Active HTN 02673066 Active Hypothyroidism 31006034 Active HLD 76902663 Active Diabetic neuropathy 681523230 Activ e GERD 638722849 Active Depression 12418599 Active Results Unknown or Not Available. Active Medications Medication Code Dose Units Frequency Route Modificatio n Start Date/Time predniSONE 20MG Oral Tablet 671394 1 TABLET DAILY ORAL 01/26/20 22 10:58 Prescription Detail TAKE 1 TABLET ORAL DAILY Medications Administered During Visit Unknown or Not Available. Encounters Encounter Diagnosis Diagnosis Code Start Date Shortness of breath R0602 09/24/2021 Social History Smoking Status Code Start Date End Date Never smoker [id number] Patient Decision Aids Unknown or Not Available. Discharge Instructions You were admitted to [facility] on 09/24/2021 11:25 with a principal diagnosis of Shortness of breath You were discharged from [facility] on 09/24/2021 00:00 Should you have any questions prior to [...]
--- OUTSIDE RECORDS SUMMARY | 2023-09-29 15:41 | XMS_ITS | CCD ---
Author Name Unknown Address [address] [place] [address] [id number] Organization Unknown Address [address] [place] [address] [phone] Care Team Providers Care Carbon Rod Inserter Name Role Phone ALEJANDRA MOODY Attending Physician [phone] Vital Signs Unknown or Not Available. Allergies Allergy Code Allergy Type Reaction Status SHRIMP 0 Food allergy Anaphylaxis Active OYSTER 0 Food allergy Anaphylaxis Active CEPHALOSPORIN 0 Drug allergy RASH Active KEFLEX 010534 Drug allergy RASH Active BACTRIM 108669 Drug allergy RASH-OINTMENT Active Procedures Unknown or Not Available. History of Immunizations Unknown or Not Available. Problems Problem Code Start Date Resolved Date Status Type 2 diabetes 46616812 Active HTN 83393486 Active Hypothyroidism 22709987 Active HLD 92851663 Active Diabetic neuropathy 881317588 Activ e GERD 613727758 Active Depression 79125351 Active Results D-DIMER - Collect Date/Time: 08/27/2021 13:43 Test Name Code Test Result Test Units Test Ref Rang e D-DIMER 51667-7 1.02 mg/L L=0.19 H=0.50 Active Medications Medication Code Dose Units Frequency Route Modificatio n Start Date/Time predniSONE 20MG Oral Tablet 701415 1 TABLET DAILY ORAL 01/26/20 22 10:58 Prescription Detail TAKE 1 TABLET ORAL DAILY Medications Administered During Visit Unknown or Not Available. Encounters Encounter Diagnosis Diagnosis Code Start Date Dyspnea [id number] 08/27/2021 Social History Smoking Status Code Start Date End Date Never smoker 982213346 Patient Decision Aids Unknown or Not Available. Discharge Instructions You were admitted to [facility] on 08/27/2021 13:12 with a principal diagnosis of Shortness of breath You had the following tests done:D-DIMER You were discharged from [facility] on 08/27/2021 13:12 Should you have any questions prior to [...]
--- OUTSIDE RECORDS SUMMARY | 2023-09-29 15:41 | XMS_ITS | CCD ---
Author Name Unknown Address [address] [place] [address] [phone] Organization Unknown Address [address] [place] [address] [phone] Care Team Providers Care Cyber Defense Analyst Name Role Phone TREE RUIZ Attending Physician [phone] Vital Signs Unknown or Not Available. Allergies Allergy Code Allergy Type Reaction Status SHRIMP 0 Food allergy Anaphylaxis Active OYSTER 0 Food allergy Anaphylaxis Active CEPHALOSPORIN 0 Drug allergy RASH Active KEFLEX 208559 Drug allergy RASH Active BACTRIM 947374 Drug allergy RASH-OINTMENT Active Procedures Unknown or Not Available. History of Immunizations Unknown or Not Available. Problems Problem Code Start Date Resolved Date Status Type 2 diabetes 32289065 Active HTN 09638106 Active Hypothyroidism 89962768 Active HLD 07856063 Active Diabetic neuropathy 348816698 Activ e GERD 125207483 Active Depression 91177175 Active Results [facility] PRUDENCEID RHEONIX* - Yessi ect Date/Time: 10/20/2021 16:06 Test Name Code Test Result Test Units Test Ref Rang e Tier- SYMPTOMS N/A SARS COV2 RNA: 68276-2 NEGATIVE N/A REFERENCE RANGE: NEGAT Active Medications Medication Code Dose Units Frequency Route Modificatio n Start Date/Time predniSONE 20MG Oral Tablet 366904 1 TABLET DAILY ORAL 01/26/20 22 10:58 Prescription Detail TAKE 1 TABLET ORAL DAILY Medications Administered During Visit Unknown or Not Available. Encounters Encounter Diagnosis Diagnosis Code Start Date Exposure to SARS-CoV-2 054244713 Social History Smoking Status Code Start Date End Date Never smoker 809959816 Patient Decision Aids Unknown or Not Available. Discharge Instructions You were admitted to [facility] on 10/20/2021 10:47 with a principal diagnosis of Contact with and (suspected) exposure to COVID-19 You had the following tests done:JOSE FOSSID RHEONIX* You were discharged from [facility] on 10/20/2021 10:47 Should you have any questions prior to [...]
== END 2023-09-29 15:39 | disposition home or self-care (01) ==
LOC: NCHCN 15:38
PROVIDERS: PCP Family Medicine; Visit Provider Family Medicine
DX: N18.30 Chronic kidney disease, stage 3 unspecified (principal)
CPT/HCPCS: 80048

== ENCOUNTER 2023-11-21 17:38 | Outpatient (REF) | payer MEDICARE, MEDICAID, SELFPAY ==
--- OUTSIDE RECORDS SUMMARY | 2023-11-21 17:40 | XMS_ITS | CCD ---
Author Name Unknown Address [address] [place] [address] [id number] Organization Unknown Address [address] [place] [address] [phone] Care Team Providers Care Barrel Racer Name Role Phone PENNY, MCKAQUINCY Saini Attending Physician [phone] Vital Signs Unknown or Not Available. Allergies Allergy Code Allergy Type Reaction Status SHRIMP 0 Food allergy Anaphylaxis Active OYSTER 0 Food allergy Anaphylaxis Active CEPHALOSPORIN 0 Drug allergy RASH Active KEFLEX 288332 Drug allergy RASH Active BACTRIM 132901 Drug allergy RASH-OINTMENT Active DICLOFENAC POTASSIUM 33231 Drug allergy RASH Ac tive Procedures Unknown or Not Available. History of Immunizations Unknown or Not Available. Problems Problem Code Start Date Resolved Date Status Type 2 diabetes 64224172 Active HTN 02380905 Active Hypothyroidism 93624217 Active HLD 92335616 Active Diabetic neuropathy 796530094 Activ e GERD 476075555 Active Depression 00685474 Active Results Unknown or Not Available. Active Medications Medication Code Dose Units Frequency Route Modificatio n Start Date/Time predniSONE 20MG Oral Tablet 470085 1 TABLET DAILY ORAL 01/26/20 22 10:58 Prescription Detail TAKE 1 TABLET ORAL DAILY Medications Administered During Visit Unknown or Not Available. Encounters Encounter Diagnosis Diagnosis Code Start Date Pain in right knee C62175 05/31/2023 Social History Smoking Status Code Start Date End Date Never smoker 516213830 Patient Decision Aids Unknown or Not Available. Discharge Instructions You were admitted to [facility] on 05/31/2023 08:20 with a principal diagnosis of Pain in right knee You were discharged from [facility] on 05/31/2023 14:32 Should you have any [...]
--- OUTSIDE RECORDS SUMMARY | 2023-11-21 17:41 | XMS_ITS | CCD ---
Author Name Unknown Address [address] [place] [address] [phone] Organization Unknown Address [address] [place] [address] [phone] Care Team Providers Care Plant Operator Name Role Phone TREE RUIZ Attending Physician [phone] Vital Signs Unknown or Not Available. Allergies Allergy Code Allergy Type Reaction Status SHRIMP 0 Food allergy Anaphylaxis Active OYSTER 0 Food allergy Anaphylaxis Active CEPHALOSPORIN 0 Drug allergy RASH Active KEFLEX 761310 Drug allergy RASH Active BACTRIM 232187 Drug allergy RASH-OINTMENT Active Procedures Unknown or Not Available. History of Immunizations Unknown or Not Available. Problems Problem Code Start Date Resolved Date Status Type 2 diabetes 21351606 Active HTN 96799348 Active Hypothyroidism 99424089 Active HLD 10400283 Active Diabetic neuropathy 878111071 Activ e GERD 378655967 Active Depression 02434939 Active Results [facility] PRUDENCEID RHEONIX* - Yessi ect Date/Time: 10/20/2021 16:06 Test Name Code Test Result Test Units Test Ref Rang e Tier- SYMPTOMS N/A SARS COV2 RNA: 75831-7 NEGATIVE N/A REFERENCE RANGE: NEGAT Active Medications Medication Code Dose Units Frequency Route Modificatio n Start Date/Time predniSONE 20MG Oral Tablet 859502 1 TABLET DAILY ORAL 01/26/20 22 10:58 Prescription Detail TAKE 1 TABLET ORAL DAILY Medications Administered During Visit Unknown or Not Available. Encounters Encounter Diagnosis Diagnosis Code Start Date Exposure to SARS-CoV-2 968089282 Social History Smoking Status Code Start Date End Date Never smoker 859320147 Patient Decision Aids Unknown or Not Available. Discharge Instructions You were admitted to [facility] on 10/20/2021 10:47 with a principal diagnosis of Contact with and (suspected) exposure to COVID-19 You had the following tests done:JOSE FOSSID RHEONIX* You were discharged from [facility] on 10/20/2021 10:47 Should you have [...]
--- OUTSIDE RECORDS SUMMARY | 2023-11-21 17:41 | XMS_ITS | CCD ---
Author Name Unknown Address [address] [place] [address] [id number] Organization Unknown Address [address] [place] [address] [phone] Care Team Providers Care Freelance Photographer Name Role Phone BALJIT CALI Attending Physician [phone] BALJIT CALI Rounding (Secondary) Physician [phone] Vital Signs Unknown or Not Available. Allergies Allergy Code Allergy Type Reaction Status SHRIMP 0 Food allergy Anaphylaxis Active OYSTER 0 Food allergy Anaphylaxis Active CEPHALOSPORIN 0 Drug allergy RASH Active KEFLEX 816273 Drug allergy RASH Active BACTRIM 231733 Drug allergy RASH-OINTMENT Active DICLOFENAC POTASSIUM 53840 Drug allergy RASH Ac tive Procedures Unknown or Not Available. History of Immunizations Unknown or Not Available. Problems Problem Code Start Date Resolved Date Status Type 2 diabetes 93531311 Active HTN 35195081 Active Hypothyroidism 76172262 Active HLD 00130811 Active Diabetic neuropathy 249504492 Activ e GERD 344746327 Active Depression 54064381 Active Results PAP THINPREP HPV REGARDLESS OF DX* - Collect Date/Time: 05/10/2023 20:26 Test Name Code Test Result Test Units Test Ref Rang e Report (See below) N/A Active Medications Medication Code Dose Units Frequency Route Modificatio n Start Date/Time predniSONE 20MG Oral Tablet 601582 1 TABLET DAILY ORAL 01/26/20 22 10:58 Prescription Detail TAKE 1 TABLET ORAL DAILY Medications Administered During Visit Unknown or Not Available. Encounters Encounter Diagnosis Diagnosis Code Start Date Encounter for gynecological examination (general) (routine) without abnormal findings [id number] 05/10/2023 Social History Smoking Status Code Start Date End Date Never smoker 482167571 Patient Decision Aids Unknown or Not Available. Discharge Instructions You were admitted to [facility] on 05/10/2023 07:51 with a principal diagnosis of Encounter for gynecological examination (general) (routine) without abnormal findings You had the following tests done:PAP THINPREP HPV REGARDLESS OF DX* You were discharged from [facility] on 05/10/2023 07:52 Should you have [...]
--- OUTSIDE RECORDS SUMMARY | 2023-11-21 17:41 | XMS_ITS | CCD ---
Author Name Unknown Address [address] [place] [address] [id number] Organization Unknown Address [address] [place] [address] [phone] Care Team Providers Care Clinical Cytogenetics Director Name Role Phone PENNY, MCKAQUINCY Parveen Attending Physician [phone] Vital Signs Unknown or Not Available. Allergies Allergy Code Allergy Type Reaction Status SHRIMP 0 Food allergy Anaphylaxis Active OYSTER 0 Food allergy Anaphylaxis Active CEPHALOSPORIN 0 Drug allergy RASH Active KEFLEX 280885 Drug allergy RASH Active BACTRIM 635235 Drug allergy RASH-OINTMENT Active Procedures Unknown or Not Available. History of Immunizations Unknown or Not Available. Problems Problem Code Start Date Resolved Date Status Type 2 diabetes 03260571 Active HTN 86176628 Active Hypothyroidism 81383004 Active HLD 71096100 Active Diabetic neuropathy 198266830 Activ e GERD 766539895 Active Depression 87888700 Active Results Unknown or Not Available. Active Medications Medication Code Dose Units Frequency Route Modificatio n Start Date/Time predniSONE 20MG Oral Tablet 577730 1 TABLET DAILY ORAL 01/26/20 22 10:58 Prescription Detail TAKE 1 TABLET ORAL DAILY Medications Administered During Visit Unknown or Not Available. Encounters Encounter Diagnosis Diagnosis Code Start Date Pain in left knee A60448 01/18/2022 Social History Smoking Status Code Start Date End Date Never smoker 023250251 Patient Decision Aids Unknown or Not Available. Discharge Instructions You were admitted to [facility] on 01/18/2022 11:52 with a principal diagnosis of Pain in left knee You were discharged from [facility] on 01/18/2022 11:52 Should you have any [...]
--- OUTSIDE RECORDS SUMMARY | 2023-11-21 17:41 | XMS_ITS | CCD ---
Author Name Unknown Address [address] [place] [address] [phone] Organization Unknown Address [address] [place] [address] [phone] Care Team Providers Care Hadoop Architect Name Role Phone RAUL VICK Attending Physician [phone] RAUL VICK Er Physician [phone] Unavailable Registered Nurse [phone] Vital Signs Vital Sign Value Unit Date/Time [...] CEPHALOSPORIN 0 Drug allergy RASH Active KEFLEX 647409 Drug allergy RASH Active BACTRIM 118611 Drug allergy RASH-OINTMENT Active DICLOFENAC POTASSIUM 24516 Drug allergy RASH Ac tive Procedures Unknown or Not Available. History of Immunizations Unknown or Not Available. Problems Problem Code Start Date Resolved Date Status Type 2 diabetes 11124460 Active HTN 96000304 Active Hypothyroidism 02549955 Active HLD 40895971 Active Diabetic neuropathy 262305895 Activ e GERD 874895107 Active Depression 68322288 Active Results Unknown or Not Available. Active Medications Unknown or Not Available. Medications Administered During Visit Unknown or Not Available. Encounters Encounter Diagnosis Diagnosis Code Start Date Contusion of left knee, initial encounter K5438A A 01/25/2022 Social History Smoking Status Code Start Date End Date Never smoker 354714442 Patient Decision Aids Unknown or Not Available. Discharge Instructions You were admitted to [facility] on 01/25/2022 09:44 with a principal diagnosis of Contusion of left knee, initial encounter You were discharged from [facility] on 01/25/2022 11:33 Should you have any [...]
--- OUTSIDE RECORDS SUMMARY | 2023-11-21 17:41 | XMS_ITS | CCD ---
Author Name Unknown Address [address] [place] [address] [phone] Organization Unknown Address [address] [place] [address] [phone] Care Team Providers Care Ironing Machine Operator Name Role Phone PENNY, MCKAQUINCY Saini Attending Physician [phone] Vital Signs Unknown or Not Available. Allergies Allergy Code Allergy Type Reaction Status SHRIMP 0 Food allergy Anaphylaxis Active OYSTER 0 Food allergy Anaphylaxis Active CEPHALOSPORIN 0 Drug allergy RASH Active KEFLEX 089370 Drug allergy RASH Active BACTRIM 767196 Drug allergy RASH-OINTMENT Active DICLOFENAC POTASSIUM 52935 Drug allergy RASH Ac tive Procedures Unknown or Not Available. History of Immunizations Unknown or Not Available. Problems Problem Code Start Date Resolved Date Status Type 2 diabetes 33162359 Active HTN 55005191 Active Hypothyroidism 70573171 Active HLD 21228889 Active Diabetic neuropathy 220077176 Activ e GERD 166656884 Active Depression 36003817 Active Results Unknown or Not Available. Active Medications Medication Code Dose Units Frequency Route Modificatio n Start Date/Time predniSONE 20MG Oral Tablet 231351 1 TABLET DAILY ORAL 01/26/20 22 10:58 Prescription Detail TAKE 1 TABLET ORAL DAILY Medications Administered During Visit Unknown or Not Available. Encounters Encounter Diagnosis Diagnosis Code Start Date Other specified soft tissue disorders M7989 07/08/2022 Social History Smoking Status Code Start Date End Date Never smoker 310482547 Patient Decision Aids Unknown or Not Available. Discharge Instructions You were admitted to [facility] on 07/08/2022 08:31 with a principal diagnosis of Other specified soft tissue disorders You were discharged from [facility] on 07/08/2022 08:31 Should you have [...]
--- OUTSIDE RECORDS SUMMARY | 2023-11-21 17:41 | XMS_ITS | CCD ---
Author Name Unknown Address [address] [place] [address] [phone] Organization Unknown Address [address] [place] [address] [phone] Care Team Providers Care Cook Fast Food Name Role Phone EDGARDO FRANCISQUINCY Parveen Attending Physician [phone] Vital Signs Unknown or Not Available. Allergies Allergy Code Allergy Type Reaction Status SHRIMP 0 Food allergy Anaphylaxis Active OYSTER 0 Food allergy Anaphylaxis Active CEPHALOSPORIN 0 Drug allergy RASH Active KEFLEX 015870 Drug allergy RASH Active BACTRIM 554145 Drug allergy RASH-OINTMENT Active Procedures Unknown or Not Available. History of Immunizations Unknown or Not Available. Problems Problem Code Start Date Resolved Date Status Type 2 diabetes 49904298 Active HTN 66425933 Active Hypothyroidism 38683917 Active HLD 31322829 Active Diabetic neuropathy 139189835 Activ e GERD 974536294 Active Depression 51813261 Active Results D-DIMER - Collect Date/Time: 12/24/2021 13:43 Test Name Code Test Result Test Units Test Ref Rang e D-DIMER 62092-2 0.38 mg/L L=0.19 H=0.50 Active Medications Medication Code Dose Units Frequency Route Modificatio n Start Date/Time predniSONE 20MG Oral Tablet 509660 1 TABLET DAILY ORAL 01/26/20 22 10:58 Prescription Detail TAKE 1 TABLET ORAL DAILY Medications Administered During Visit Unknown or Not Available. Encounters Encounter Diagnosis Diagnosis Code Start Date Localized swelling, mass and lump, unspecified l ower limb R2240 12/24/2021 Social History Smoking Status Code Start Date End Date Never smoker 566784699 Patient Decision Aids Unknown or Not Available. Discharge Instructions You were admitted to [facility] on 12/24/2021 13:30 with a principal diagnosis of Localized swelling, mass and lump, unspecified lower limb You had the following tests done:D-DIMER You were discharged from [facility] on 12/24/2021 13:30 Should you [...]
--- OUTSIDE RECORDS SUMMARY | 2023-11-21 17:42 | XMS_ITS | CCD ---
Author Name Unknown Address [address] [place] [address] [phone] Organization Unknown Address [address] [place] [address] [phone] Care Team Providers Care Tarring Machine Operator Name Role Phone DONAVAN SUH Attending Physician [phone] DONAVAN SUH Rounding (Secondary) Physician [phone] Vital Signs Unknown or Not Available. Allergies Allergy Code Allergy Type Reaction Status SHRIMP 0 Food allergy Anaphylaxis Active OYSTER 0 Food allergy Anaphylaxis Active CEPHALOSPORIN 0 Drug allergy RASH Active KEFLEX 946820 Drug allergy RASH Active BACTRIM 975212 Drug allergy RASH-OINTMENT Active Procedures Unknown or Not Available. History of Immunizations Unknown or Not Available. Problems Problem Code Start Date Resolved Date Status Type 2 diabetes 92708860 Active HTN 82621240 Active Hypothyroidism 47656680 Active HLD 60315464 Active Diabetic neuropathy 420576380 Activ e GERD 228244335 Active Depression 24383399 Active Results Unknown or Not Available. Active Medications Medication Code Dose Units Frequency Route Modificatio n Start Date/Time predniSONE 20MG Oral Tablet 843774 1 TABLET DAILY ORAL 01/26/20 22 10:58 Prescription Detail TAKE 1 TABLET ORAL DAILY Medications Administered During Visit Unknown or Not Available. Encounters Encounter Diagnosis Diagnosis Code Start Date Shortness of breath R0602 09/24/2021 Social History Smoking Status Code Start Date End Date Never smoker 892643199 Patient Decision Aids Unknown or Not Available. Discharge Instructions You were admitted to [facility] on 09/24/2021 11:25 with a principal diagnosis of Shortness of breath You were discharged from [facility] on 09/24/2021 00:00 Should you have any [...]
--- OUTSIDE RECORDS SUMMARY | 2023-11-21 17:42 | XMS_ITS | CCD ---
Author Name Unknown Address [address] [place] [address] [phone] Organization Unknown Address [address] [place] [address] [phone] Care Team Providers Care Billiard Table Repairer Name Role Phone RAMSEYZOILA STEIN NASIMA Attending Physician [phone] Vital Signs Unknown or Not Available. Allergies Allergy Code Allergy Type Reaction Status SHRIMP 0 Food allergy Anaphylaxis Active OYSTER 0 Food allergy Anaphylaxis Active CEPHALOSPORIN 0 Drug allergy RASH Active KEFLEX 503620 Drug allergy RASH Active BACTRIM 866773 Drug allergy RASH-OINTMENT Active Procedures Unknown or Not Available. History of Immunizations Unknown or Not Available. Problems Problem Code Start Date Resolved Date Status Type 2 diabetes 52212433 Active HTN 33278946 Active Hypothyroidism 63270726 Active HLD 99712367 Active Diabetic neuropathy 549435747 Activ e GERD 490923260 Active Depression 89607840 Active Results Unknown or Not Available. Active Medications Medication Code Dose Units Frequency Route Modificatio n Start Date/Time predniSONE 20MG Oral Tablet 214181 1 TABLET DAILY ORAL 01/26/20 22 10:58 Prescription Detail TAKE 1 TABLET ORAL DAILY Medications Administered During Visit Unknown or Not Available. Encounters Encounter Diagnosis Diagnosis Code Start Date Neuropathy due to type 2 diabetes mellitus 56907 [id number] 05/18/2021 Social History Smoking Status Code Start Date End Date Never smoker 515713808 Patient Decision Aids Unknown or Not Available. Discharge Instructions You were admitted to [facility] on 05/18/2021 07:50 with a principal diagnosis of Type 2 diabetes mellitus with diabetic neuropathy, unspecified You were discharged from [facility] on 05/18/2021 07:50 Should you [...]
--- OUTSIDE RECORDS SUMMARY | 2023-11-21 17:42 | XMS_ITS | CCD ---
Author Name Unknown Address [address] [place] [address] [phone] Organization Unknown Address [address] [place] [address] [phone] Care Team Providers Care Social Service Liaison Name Role Phone GUALBERTO GUERRERO MD Attending Physician [phone] Vital Signs Unknown or Not Available. Allergies Allergy Code Allergy Type Reaction Status CEPHALOSPORIN 0 Drug allergy RASH Active KEFLEX 832139 Drug allergy RASH Active Procedures Unknown or Not Available. History of Immunizations Unknown or Not Available. Problems Problem Code Start Date Resolved Date Status Type 2 diabetes 53405645 Active HTN 51815961 Active Hypothyroidism 11599106 Active HLD 55965006 Active Diabetic neuropathy 269341944 Activ e GERD 859256604 Active Depression 39339416 Active Results Unknown or Not Available. Active Medications Medication Code Dose Units Frequency Route Modificatio n Start Date/Time predniSONE 20MG Oral Tablet 282173 1 TABLET DAILY ORAL 01/26/20 22 10:58 Prescription Detail TAKE 1 TABLET ORAL DAILY Medications Administered During Visit Unknown or Not Available. Encounters Encounter Diagnosis Diagnosis Code Start Date Procedure and treatment not carried out because of patient's decision for other reasons Z5329 04/02/2021 Social History Smoking Status Code Start Date End Date Never smoker 695833043 Patient Decision Aids Unknown or Not Available. Discharge Instructions You were admitted to on 04/02/2021 08:12 with a principal diagnosis [...]
--- OUTSIDE RECORDS SUMMARY | 2023-11-21 17:42 | XMS_ITS | CCD ---
Author Name Unknown Address [address] [place] [address] [phone] Organization Unknown Address [address] [place] [address] [phone] Care Team Providers Care Appeals Specialist Name Role Phone MEENAKSHI FRANCIS MD Attending Physician [phone] Vital Signs Unknown or Not Available. Allergies Allergy Code Allergy Type Reaction Status CEPHALOSPORIN 0 Drug allergy RASH Active KEFLEX 567406 Drug allergy RASH Active Procedures Unknown or Not Available. History of Immunizations Unknown or Not Available. Problems Problem Code Start Date Resolved Date Status Type 2 diabetes 22210470 Active HTN 75503263 Active Hypothyroidism 73592933 Active HLD 73644646 Active Diabetic neuropathy 942413196 Activ e GERD 665455999 Active Depression 19809251 Active Results Unknown or Not Available. Active Medications Medication Code Dose Units Frequency Route Modificatio n Start Date/Time predniSONE 20MG Oral Tablet 750895 1 TABLET DAILY ORAL 01/26/20 22 10:58 Prescription Detail TAKE 1 TABLET ORAL DAILY Medications Administered During Visit Unknown or Not Available. Encounters Encounter Diagnosis Diagnosis Code Start Date Abdominal distension (gaseous) R140 0 03/29/2021 Social History Smoking Status Code Start Date End Date Never smoker [id number] Patient Decision Aids Unknown or Not Available. Discharge Instructions You were admitted to [facility] on 03/29/2021 16:40 with a principal diagnosis of Abdominal distension (gaseous) You were discharged from [facility] 01 on 03/29/2021 16:40 Should you have [...]
--- OUTSIDE RECORDS SUMMARY | 2023-11-21 17:42 | XMS_ITS | CCD ---
Author Name Unknown Address [address] [place] [address] [phone] Organization Unknown Address [address] [place] [address] [phone] Care Team Providers Care Trim Machine Adjuster Name Role Phone ALEJANDRA MOODY Attending Physician [phone] Vital Signs Unknown or Not Available. Allergies Allergy Code Allergy Type Reaction Status SHRIMP 0 Food allergy Anaphylaxis Active OYSTER 0 Food allergy Anaphylaxis Active CEPHALOSPORIN 0 Drug allergy RASH Active KEFLEX 265343 Drug allergy RASH Active BACTRIM 016870 Drug allergy RASH-OINTMENT Active Procedures Unknown or Not Available. History of Immunizations Unknown or Not Available. Problems Problem Code Start Date Resolved Date Status Type 2 diabetes 32813482 Active HTN 71248180 Active Hypothyroidism 96288538 Active HLD 19949748 Active Diabetic neuropathy 222817332 Activ e GERD 013476875 Active Depression 63938562 Active Results D-DIMER - Collect Date/Time: 08/27/2021 13:43 Test Name Code Test Result Test Units Test Ref Rang e D-DIMER 69738-9 1.02 mg/L L=0.19 H=0.50 Active Medications Medication Code Dose Units Frequency Route Modificatio n Start Date/Time predniSONE 20MG Oral Tablet 567795 1 TABLET DAILY ORAL 01/26/20 22 10:58 Prescription Detail TAKE 1 TABLET ORAL DAILY Medications Administered During Visit Unknown or Not Available. Encounters Encounter Diagnosis Diagnosis Code Start Date Dyspnea [id number] 08/27/2021 Social History Smoking Status Code Start Date End Date Never smoker [id number] Patient Decision Aids Unknown or Not Available. Discharge Instructions You were admitted to [facility] on 08/27/2021 13:12 with a principal diagnosis of Shortness of breath You had the following tests done:D-DIMER You were discharged from [facility] on 08/27/2021 13:12 Should you have [...]
[2023-11-22 13:51] LABS: COMMENT (LAB VIEW ONLY) 94.56 mg/dL; Microalb ug/mg Crea 26.6 ug/mg Cr
== END 2023-11-21 17:39 | disposition home or self-care (01) ==
LOC: NCHCN 17:38
PROVIDERS: PCP Family Medicine; Visit Provider Family Medicine
DX: E11.9 Type 2 diabetes mellitus without complications (principal)
CPT/HCPCS: 82043; 82570

== ENCOUNTER 2024-04-05 16:11 | Outpatient (REF) | payer MEDICARE, MEDICAID, SELFPAY ==
[2024-04-05 21:43] LABS: Anion Gap 10.2 mmol/L (3-11); BUN 27 mg/dL (7-18); CO2 27.8 mmol/L (21.0-32.0); CREATININE 1.4 mg/dL (0.55-1.02); Calcium 9.4 mg/dL (8.5-10.1); Chloride 107 mmol/L (98-107); Glucose 90 mg/dL (74-106); Potassium 4.5 mmol/L (3.5-5.1); Sodium 145 mmol/L (136-145); TSH 3.73 uIU/Ml (0.36-3.74)
== END 2024-04-05 16:12 | disposition home or self-care (01) ==
LOC: NCHCN 16:11
PROVIDERS: PCP Family Medicine; Visit Provider Family Medicine
DX: E03.9 Hypothyroidism, unspecified (principal); N18.30 Chronic kidney disease, stage 3 unspecified
CPT/HCPCS: 80048; 84443

== ENCOUNTER 2024-09-20 17:02 | Outpatient (REF) | payer MEDICARE, MEDICAID, SELFPAY ==
[2024-09-20 21:29] LABS: Hemoglobin A1C 6.6 % (<5.7)
[2024-09-20 21:40] LABS: Anion Gap 6.9 mmol/L (3-11); BUN 19 mg/dL (7-18); CO2 27.1 mmol/L (21.0-32.0); CREATININE 1.4 mg/dL (0.55-1.02); Calcium 9.4 mg/dL (8.5-10.1); Chloride 111 mmol/L (98-107); Estimated GFR 42.54 (mL/min/1.73m2); Glucose 83 mg/dL (74-106); Potassium 4.8 mmol/L (3.5-5.1); Sodium 145 mmol/L (136-145)
== END 2024-09-20 17:03 | disposition home or self-care (01) ==
LOC: NCHCN 17:02
PROVIDERS: PCP Family Medicine; Visit Provider Family Medicine
DX: E11.9 Type 2 diabetes mellitus without complications (principal)
CPT/HCPCS: 80048; 83036

== ENCOUNTER 2025-06-03 09:03 | Outpatient (REF) | payer MEDICARE, MEDICAID, SELFPAY ==
[2025-06-03 15:35] LABS: Hemoglobin A1C 6.1 % (<5.7)
[2025-06-03 15:45] LABS: ALT 20 U/L (14-59); AST 19 U/L (15-37); Albumin 3.4 g/dL (3.4-5.0); Alkaline Phosphatase 81 U/L (46-116); Anion Gap 11.4 mmol/L (3-11); BUN 28 mg/dL (7-18); Bilirubin, Total 0.4 mg/dL (0.2-1.0); CO2 20.6 mmol/L (21.0-32.0); Calcium 9.0 mg/dL (8.5-10.1); Calculated LDL 27 mg/dL (<100); Chloride 112 mmol/L (98-107); Cholesterol 112 mg/dL (<200); Estimated GFR 46.21 (mL/min/1.73m2); Glucose 149 mg/dL (74-106); HDL Cholesterol 34 mg/dL (>or=50); Potassium 5.0 mmol/L (3.5-5.1); Sodium 144 mmol/L (136-145); Total Protein 7.0 g/dL (6.4-8.2); Triglyceride 257 mg/dL (<150)
[2025-06-03 16:13] LABS: TSH 0.02 uIU/mL (0.36-3.74)
[2025-06-03 16:15] LABS: COMMENT (LAB VIEW ONLY) 96.24 mg/dL; Microalb ug/mg Crea 8.3 ug/mg Cr
== END 2025-06-03 09:04 | disposition home or self-care (01) ==
LOC: NCHCN 09:03
PROVIDERS: PCP Family Medicine; Visit Provider Family Medicine
DX: E78.2 Mixed hyperlipidemia (principal); E11.9 Type 2 diabetes mellitus without complications; E03.9 Hypothyroidism, unspecified
CPT/HCPCS: 80053; 80061; 82043; 82570; 83036; 84443

== ENCOUNTER 2025-08-14 17:25 | Outpatient (REF) | payer MEDICARE, MEDICAID, SELFPAY ==
[2025-08-14 21:54] LABS: TSH 0.08 uIU/mL (0.36-3.74)
== END 2025-08-14 17:26 | disposition home or self-care (01) ==
LOC: NCHCN 17:25
PROVIDERS: PCP Family Medicine; Visit Provider Family Medicine
DX: E03.9 Hypothyroidism, unspecified (principal)
CPT/HCPCS: 84443

== ENCOUNTER 2025-10-14 16:21 | Outpatient (REF) | payer MEDICARE, MEDICAID, SELFPAY ==
[2025-10-14 22:11] LABS: ALT 20 U/L (10-49); AST 23 U/L (<34); Albumin 4.3 g/dL (3.2-5.0); Alkaline Phosphatase 88 U/L (46-116); Anion Gap 10.3 mmol/L (3-11); BUN 39 mg/dL (9-23); Bilirubin, Total 0.3 mg/dL (0.2-1.2); CO2 24.7 mmol/L (20.0-31.0); Calcium 9.3 mg/dL (8.3-10.6); Chloride 110 mmol/L (98-107); Glucose 145 mg/dL (74-106); Potassium 4.3 mmol/L (3.5-5.1); Sodium 145 mmol/L (136-145); Total Protein 7.1 g/dL (5.7-8.2)
[2025-10-14 22:14] LABS: TSH 0.14 uIU/mL (0.55-4.78)
== END 2025-10-14 16:22 | disposition home or self-care (01) ==
LOC: NCHCN 16:21
PROVIDERS: PCP Family Medicine; Visit Provider Family Medicine
DX: E03.9 Hypothyroidism, unspecified (principal); E11.9 Type 2 diabetes mellitus without complications; E16.0 Drug-induced hypoglycemia without coma
CPT/HCPCS: 80053; 84443